=== PATIENT | female | born 1965 | race American Indian/Alaskan Native ===

== ENCOUNTER 2016-11-29 08:32 | Inpatient (IN) | payer BC ==
[2016-11-29 09:03] LABS: Basophils % (Auto) 0.7 % (0.0-1.8); Hematocrit 38.8 % (30.3-42.9); Hemoglobin 13.4 gm/dl (10.1-14.3); Mean Corpuscular HGB Conc 35 % (30-34); Mean Corpuscular Hemoglobin 27 pg (28-32); Mean Corpuscular Volume 79 fl (79-97); Platelet Count 204 K/mm3 (140-440); Red Blood Count 4.93 M/mm3 (3.65-5.03); White Blood Count 5.2 K/mm3 (4.5-11.0)
[2016-11-29 09:25] LABS: Anion Gap 19 mmol/L; BUN/Creatinine Ratio 25.55; Blood Urea Nitrogen 23 mg/dL (7-17); Calcium 9.2 mg/dL (8.4-10.2); Carbon Dioxide 27 mmol/L (22-30); Chloride 99.3 mmol/L (98-107); Glucose 115 mg/dL (65-100); Potassium 3.7 mmol/L (3.6-5.0); Sodium 142 mmol/L (137-145)
[2016-11-29 09:26] LABS: Amylase 126 units/L (27-131); Lipase 9 units/L (13-60)
[2016-11-29 10:27] LABS: Alanine Aminotransferase 26 units/L (7-56); Albumin 4.5 g/dL (3.9-5); Albumin/Globulin Ratio 1.1 %; Alkaline Phosphatase 120 units/L (35-129); Bilirubin,Direct < 0.2 mg/dL (0-0.2); Bilirubin,Total 0.4 mg/dL (0.1-1.2); Total Protein 8.7 g/dL (6.3-8.2)
--- NOTE | 2016-11-29 11:32 | Emergency Department Report ---
ED Chest Pain HPI - General Chief Complaint: Chest Pain Stated Complaint: CHEST PAIN Time Seen by Provider: 11/29/16 11:25 Source: patient Mode of arrival: Ambulatory Limitations: No Limitations - History of Present Illness Initial Comments: The patient reports intermittent chest pain in the substernal to right side of sternal area. She states she also feels some discomfort in the subscapular area. The pain does not truly radiate however. There is no radiation or pain involving the arms or the neck. She has recently traveled. However, her chest pain began before her trip. She reports no upper leg or calf pain. Her chest pain is not pleuritic. She has not been coughing or short of breath. She states that she vomited once while in the emergency department. She is not complaining of nausea at this time however. The pain is non-pleuritic. The patient states that she was seen by a selvage machine operator approximately one month ago. She had an echocardiogram. Apparently she was found to have some sort of valvular problem. I asked her was a floppy valve. She thinks that turned may have been used. She also states that she has had a murmur since childhood. She is really not aware of her specific echocardiogram result. She has never had a stress test. She's never been admitted to the hospital for chest pain. He has a history of hypertension. MD Complaint: chest pain -: Gradual, days(s) Onset: during rest Pain Location: substernal, other (right of sternum/back) Aspirin use within the Past 7 Days: (0) No - Related Data On Oral Contraceptives: No Allergies Allergy/AdvReac Type Severity Reaction Status Date / Time No Known Allergies Allergy Unverified 11/29/16 08:39 HERNANDO score - Hernando Score Age > 65: (0) No Aspirin use within the Past 7 Days: (0) No 3 or more CAD Risk Factors: (0) No 2 or more Angina events in past 24 hrs: (0) No Known CAD with more than 50% Stenosis: (0) No Elevated Cardiac Markers: (0) No ST Deviation Greater than 0.5mm: (0) No HERNANDO Score: 0 ED Review of Systems ROS: Stated complaint: CHEST PAIN Other details as noted in HPI Constitutional: denies: chills, fever Eyes: denies: eye pain, eye discharge, vision change ENT: denies: ear pain, throat pain Respiratory: shortness of breath. denies: cough, wheezing Cardiovascular: chest pain. denies: palpitations Endocrine: no symptoms reported Gastrointestinal: denies: abdominal pain, nausea, diarrhea Genitourinary: denies: urgency, dysuria, discharge Musculoskeletal: denies: back pain, joint swelling, arthralgia Skin: denies: rash, lesions Neurological: denies: headache, weakness, paresthesias Psychiatric: denies: anxiety, depression Hematological/Lymphatic: denies: easy bleeding, easy bruising ED Past Medical Hx - Past Medical History Previous Medical History?: Yes Hx Hypertension: Yes - Surgical History Past Surgical History?: Yes Additional Surgical History: pancreatic tumor removed; ablation of fibroid - Social History Smoking Status: Never Smoker Substance Use Type: None ED Physical Exam - General Limitations: No Limitations General appearance: alert, in no apparent distress - Head Head exam: Present: atraumatic, normocephalic - Eye Eye exam: Present: normal appearance. Absent: scleral icterus - ENT ENT exam: Present: normal exam, mucous membranes moist - Neck Neck exam: Present: normal inspection. Absent: meningismus - Respiratory Respiratory exam: Present: normal lung sounds bilaterally. Absent: respiratory distress - Cardiovascular Cardiovascular Exam: Present: regular rate, normal rhythm, systolic murmur (2 to 3/6 systolic murmur heard best in the right second intercostal space). Absent: diastolic murmur, rubs, gallop - GI/Abdominal GI/Abdominal exam: Present: soft, normal bowel sounds. Absent: distended, tenderness, guarding, rebound, rigid - Extremities Exam Extremities exam: Present: normal inspection - Back Exam Back exam: Present: normal inspection - Neurological Exam Neurological exam: Present: alert, oriented X3, CN II-XII intact. Absent: motor sensory deficit - Psychiatric Psychiatric exam: Present: normal affect, normal mood - Skin Skin exam: Present: warm, dry, intact, normal color. Absent: rash ED Course Vital Signs 11/29/16 08:39 Temperature 98.1 F Pulse Rate 71 Respiratory 20 Rate Blood Pressure 176/101 O2 Sat by Pulse 99 Oximetry - Reevaluation(s) Reevaluation #1: The patient was given analgesia, aspirin, Nitrol paste. He is in stable condition. I have added a d-dimer to her workup as yet pending. The hospitalist, Dr. Fermin, OB admitting the patient to the hospitalist service. 11/29/16 12:55 ED Medical Decision Making - Lab Data Result diagrams: 11/29/16 08:51 11/29/16 08:51 Laboratory Results - last 24 hr 11/29/16 11/29/16 11/29/16 08:51 08:51 08:51 WBC 5.2 RBC 4.93 Hgb 13.4 Hct 38.8 MCV 79 MCH 27 L MCHC 35 H RDW 15.0 Plt Count 204 Lymph % (Auto) 42.8 H Chester % (Auto) 8.7 H Eos % (Auto) 6.0 H Baso % (Auto) 0.7 Lymph # 2.2 Chester # 0.5 Eos # 0.3 Baso # 0.0 Seg Neutrophils % 41.8 Seg Neutrophils # 2.2 Sodium 142 Potassium 3.7 Chloride 99.3 Carbon Dioxide 27 Anion Gap 19 BUN 23 H Creatinine 0.9 Estimated GFR > 60 BUN/Creatinine Ratio 25.55 Glucose 115 H Calcium 9.2 Total Bilirubin Direct Bilirubin AST ALT Alkaline Phosphatase Troponin T < 0.010 Total Protein Albumin Albumin/Globulin Ratio Amylase 126 Lipase 9 L 11/29/16 09:24 WBC RBC Hgb Hct MCV MCH MCHC RDW Plt Count Lymph % (Auto) Chester % (Auto) Eos % (Auto) Baso % (Auto) Lymph # Chester # Eos # Baso # Seg Neutrophils % Seg Neutrophils # Sodium Potassium Chloride Carbon Dioxide Anion Gap BUN Creatinine Estimated GFR BUN/Creatinine Ratio Glucose Calcium Total Bilirubin 0.4 Direct Bilirubin < 0.2 AST 20 ALT 26 Alkaline Phosphatase 120 Troponin T Total Protein 8.7 H Albumin 4.5 Albumin/Globulin Ratio 1.1 Amylase Lipase Laboratory Results - last 24 hr 11/29/16 11/29/16 11/29/16 08:51 08:51 08:51 WBC 5.2 RBC 4.93 Hgb 13.4 Hct 38.8 MCV 79 MCH 27 L MCHC 35 H RDW 15.0 Plt Count 204 Lymph % (Auto) 42.8 H Chester % (Auto) 8.7 H Eos % (Auto) 6.0 H Baso % (Auto) 0.7 Lymph # 2.2 Chester # 0.5 Eos # 0.3 Baso # 0.0 Seg Neutrophils % 41.8 Seg Neutrophils # 2.2 PT INR APTT D-Dimer Sodium 142 Potassium 3.7 Chloride 99.3 Carbon Dioxide 27 Anion Gap 19 BUN 23 H Creatinine 0.9 Estimated GFR > 60 BUN/Creatinine Ratio 25.55 Glucose 115 H Calcium 9.2 Total Bilirubin Direct Bilirubin AST ALT Alkaline Phosphatase Troponin T < 0.010 NT-Pro-B Natriuret Pep Total Protein Albumin Albumin/Globulin Ratio Amylase 126 Lipase 9 L 11/29/16 11/29/16 11/29/16 09:24 11:49 11:53 WBC RBC Hgb Hct MCV MCH MCHC RDW Plt Count Lymph % (Auto) Chester % (Auto) Eos % (Auto) Baso % (Auto) Lymph # Chester # Eos # Baso # Seg Neutrophils % Seg Neutrophils # PT 13.4 INR 1.03 APTT 33.4 D-Dimer < 136 Sodium Potassium Chloride Carbon Dioxide Anion Gap BUN Creatinine Estimated GFR BUN/Creatinine Ratio Glucose Calcium Total Bilirubin 0.4 Direct Bilirubin < 0.2 AST 20 ALT 26 Alkaline Phosphatase 120 Troponin T < 0.010 NT-Pro-B Natriuret Pep Total Protein 8.7 H Albumin 4.5 Albumin/Globulin Ratio 1.1 Amylase Lipase 11/29/16 11:53 WBC RBC Hgb Hct MCV MCH MCHC RDW Plt Count Lymph % (Auto) Chester % (Auto) Eos % (Auto) Baso % (Auto) Lymph # Chester # Eos # Baso # Seg Neutrophils % Seg Neutrophils # PT INR APTT D-Dimer Sodium Potassium Chloride Carbon Dioxide Anion Gap BUN Creatinine Estimated GFR BUN/Creatinine Ratio Glucose Calcium Total Bilirubin Direct Bilirubin AST ALT Alkaline Phosphatase Troponin T NT-Pro-B Natriuret Pep 23.35 Total Protein Albumin Albumin/Globulin Ratio Amylase Lipase - EKG Data -: EKG Interpreted by Me EKG shows normal: sinus rhythm, axis, intervals, QRS complexes, ST-T waves Rate: normal - EKG Data Interpretation: normal EKG - Radiology Data interpreted by me: Chest x-ray shows no acute process Critical care attestation.: If time is entered above; I have spent that time in minutes in the direct care of this critically ill patient, excluding procedure time. ED Disposition Clinical Impression: Uncontrolled hypertension Chest pain Qualifiers: Chest pain type: unspecified Qualified Code(s): R07.9 - Chest pain, unspecified Disposition: OP ADMITTED IP TO THIS HOSP Is pt being admited?: Yes Does the pt Need Aspirin: Yes Condition: Stable Instructions: Chest Pain (ED), Hypertension (ED) Referrals: PRIMARY CARE, [Primary Care Provider] - 3-5 Days Time of Disposition: 13:27
[2016-11-29] MEDS ORDERED: MORPHINE IV ONE (11:48)
[2016-11-29] MEDS ORDERED: NITRO-BID 2% TP ONE (11:49)
[2016-11-29] MEDS ORDERED: ZOFRAN IV ONE (12:07)
[2016-11-29] MEDS ORDERED: MORPHINE IV PRN (12:24)
[2016-11-29] MEDS ORDERED: TYLENOL PO PRN (12:24)
[2016-11-29] MEDS ORDERED: ZOFRAN IV PRN (12:24)
[2016-11-29] MEDS ORDERED: APRESOLINE IV PRN (12:24)
--- NOTE | 2016-11-29 12:47 | XRay Report ---
Single view chest: History: Hypertension. Findings: Normal cardiomediastinal silhouette. Trachea is midline. No consolidation, pneumothorax or pleural effusion. Impression: No acute cardiopulmonary findings.
[2016-11-29 12:49] LABS: INR 1.03 (0.87-1.13); Partial Thromboplastin Time 33.4 Sec. (24.2-36.6)
[2016-11-29] MEDS ORDERED: ASPIRIN PO ONE (13:27)
[2016-11-29] MEDS: NORCO 5/325 PO PRN ×2 (14:30→21:56)
[2016-11-29] MEDS: PROTONIX PO SCH (14:30)
[2016-11-29] MEDS ORDERED: ASPIRIN ONE (14:41)
[2016-11-29] MEDS ORDERED: NORCO 5/325 ONE (14:41)
[2016-11-29] MEDS ORDERED: PROTONIX PO ONE (14:43)
--- NOTE | 2016-11-29 15:50 | History and Physical Report ---
History of Present Illness Date of examination: 11/29/16 Date of admission: 11/29/16 14:21 Chief complaint: Chest pains History of present illness: Patient is a 51-year-old woman with history of heart murmur, pancreatic tumor status post resection from [facility], here visiting since yesterday ([address]) who presents with substernal severe intermittent, pressure-like chest pain that radiates to right side underneath her right breast to axillary line that started before she drove down from [place], [place] yesterday. The chest pain is worse lying flat and lying on her right side. She had chest pain for over a months, and she saw a channeling machine operator back in [place] and was told she had a "floppy valve." She doesn't really know she had a stress tests. She denies any aggravating or relieving factors. She is tearful. She denies sob, fever, chills, cough. She did have nausea and small nonbloody emesis x 1, but no abd pains. Past History Past Medical History: other (as hpi) Past Surgical History: (x 1), Other (portion of pancrease removed for pre-cancerous lesion) Social history: full code. denies: smoking, alcohol abuse, prescription drug abuse, IV drug use Family history: CAD (mother had IL in her 50s) Medications and Allergies Allergies Allergy/AdvReac Type Severity Reaction Status Date / Time No Known Allergies Allergy Unverified 11/29/16 08:39 Active Meds: Active Medications Acetaminophen (Tylenol) 650 mg PO Q6H PRN PRN Reason: Non Cardiac Pain or Temp>100.5 Acetaminophen/Hydrocodone Bitart (Lost[place] 5/325) 1 each PO Q4H PRN PRN Reason: Pain, Moderate (4-6) Last Admin: 11/29/16 14:30 Dose: 1 each Enoxaparin Sodium (Lovenox) 40 mg SUB-Q QDAY@2200 LISSETTE Hydralazine HCl (Apresoline) 10 mg IV Q4HR PRN PRN Reason: Blood Pressure Morphine Sulfate (Morphine) 2 mg IV Q4H PRN PRN Reason: Pain , Severe (7-10) Ondansetron HCl (Zofran) 4 mg IV Q4H PRN PRN Reason: Nausea And Vomiting Pantoprazole Sodium (Protonix) 40 mg PO QDAY LISSETTE Last Admin: 11/29/16 14:30 Dose: 40 mg Review of Systems All systems: negative (as hpi, all other reviewed and negative) Exam - Constitutional Vitals: Temp Pulse Resp BP Pulse Ox 98.1 F 74 18 157/99 98 11/29/16 08:39 11/29/16 14:11 11/29/16 14:30 11/29/16 14:11 11/29/16 14:11 General appearance: Present: no acute distress - EENT Eyes: Present: PERRL, EOM intact. Absent: scleral icterus, conjunctival injection, exopthalmos ENT: hearing intact, clear oral mucosa, dentition normal - Neck Neck: Present: supple, normal ROM. Absent: rigidity, enlarged thyroid - Respiratory Respiratory effort: normal Respiratory: bilateral: CTA - Cardiovascular Rhythm: regular Heart Sounds: Present: S1 & S2, systolic murmur (3/6 RUSB) - Extremities Extremities: no ischemia, pulses intact, pulses symmetrical, No edema Peripheral Pulses: within normal limits - Abdominal General gastrointestinal: Present: soft, non-tender, non-distended, normal bowel sounds. Absent: hepatomegaly - Integumentary Integumentary: Present: clear, warm, dry. Absent: erythema - Musculoskeletal Musculoskeletal: strength equal bilaterally - Psychiatric Psychiatric: intact judgment & insight, memory intact, cooperative, other ( anxiety) - Neurologic Neurologic: CNII-XII intact, no focal deficits, moves all extremities - Allied Health Allied health notes reviewed: nursing Results - Labs CBC & Chem 7: 11/29/16 08:51 11/29/16 08:51 - Imaging and Cardiology EKG: image reviewed Assessment and Plan Patient is a 51-year-old woman with history of heart murmur, pancreatic tumor status post resection from [place], [place] area, here visiting since yesterday ([address]) who presents with substernal severe intermittent, pressure-like chest pain that radiates to right side underneath her right breast to axillary line that started before she drove down from [place], [place] yesterday. The chest pain is worse lying flat and lying on her right side. She had chest pain for over a months, and she saw a channeling machine operator back in [place] and was told she had a "floppy valve." She doesn't really know she had a stress tests. She denies any aggravating or relieving factors. She is tearful. She denies sob, fever, chills, cough. She did have nausea and small nonbloody emesis x 1, but no abd pains. 1. CP most likely not cardiac, d-dimer is normal also, suspect Anxiety related: get stress test in am 2. Uncontrolled hypertenison 3. N/v without abd pains: get kub, h/o pancreatic tumor s/p surgery, needs to follow-up with her surgeon
--- NOTE | 2016-11-29 17:13 | XRay Report ---
FINAL REPORT EXAM: XR ABDOMEN 2V HISTORY: n/v COMPARISON: None available. FINDINGS: Two AP views of the abdomen obtained. No gross free air. Mild gas-filled prominence of bowel loops concerning for minimal ileus. None are pathologically dilated. No gross pathological calcifications. There are few pelvic phleboliths. IMPRESSION: Probable mild ileus.
[2016-11-29] MEDS ORDERED: LOVENOX SUB-Q SCH (22:00)
[2016-11-29 22:24] LABS: Creatine Kinase MB 1.6 ng/mL (0.0-4.0)
[2016-11-29 22:26] LABS: Creatine Kinase 86 units/L (30-135)
--- NOTE | 2016-11-30 00:43 | Admit Criteria Form ---
Admission Criteria Documentation: CHEST PAIN Clinical Indications for Admission to Inpatient Care (Place 'X' for any and all applicable criteria): Admission is indicated for chest pain and ANY ONE of the following(1)(2)(3)(4)(5 ): [ ]I. Angina with acute coronary syndrome (Also use Myocardial Infarction or Angina guideline) [ ]II. Hemodynamic instability [ ]III. Angina needing acute intervention as indicated by ALL of the following( 11)(12): [ ]a) Unstable angina is present as indicated by angina that is ANY ONE of the following: [ ]i) New onset [ ]ii) Nocturnal [ ]iii) Prolonged at rest [ ]iv) Progressive [ ]b) Angina warrants acute intervention as indicated by ANY ONE of the following: [ ]i) Recurrent angina (e.g, not responding as previously to treatment) [ ]ii) Angina at rest or with low-level activities despite initial medical therapy [ ]iii) New or presumably new ST-segment depression on ECG [ ]iv) Signs or symptoms of heart failure (eg, dyspnea, pulmonary edema) [ ]v) New or worsening mitral regurgitation [ ]vi) Hemodynamic instability [ ]vii) Dangerous arrhythmia (eg, sustained ventricular tachycardia) [ ]viii) History of percutaneous coronary intervention within 6 months [ ]ix) History of coronary artery bypass graft surgery [ ]x) HERNANDO risk score of 2 or greater[A] [ ]xi) History of Diabetes(14) [ ]xii) High-risk cardiac ischemia findings on noninvasive testing (e.g, echocardiogram, treadmill testing, nuclear scan) [ ]xiii) Chronic renal insufficiency (ie, estimated GFR less than 60 mL/min/1.732m) [ ]xiv) Left ventricular ejection fraction less than 40% [ ]IV. Evidence of LA (eg, cardiac biomarkers positive, ST-segment elevation on ECG) also use Myocardial Infarction Criteria Form. [ ]V. Pulmonary edema [ ]. Respiratory distress [ ]VII. Chest pain indicative of serious diagnosis other than coronary artery disease (eg, aortic dissection) [ ]VIII. Contraindications and/or Inappropriate clinical situations for Observational Care in patients with Chest Pain, when ANY ONE of the following is required: [ ]a) Patient with risk factor for pulmonary embolism, acute coronary syndrome and myocardial infarction (18) [ ]b) Patient with Pulmonary embolism require an average LOS of 4.3 days, therefore emergency department observation management is inappropriate 18,23 [ ]c) Painful condition/s in the elderly, have the highest rate of recidivism after emergency department observation management (10.8%) 20,21,22 [ ]d) Elevated cardiac biomarker requires intensive and exhaustive care (19) [X ]IX. General contraindications and/or Inappropriate clinical situations for Observational Care in patients with Chest Pain, when ANY ONE of the following is required: [ X]a) Prediction of prolongation of LOS based on ANY ONE of the following may be considered as a contraindication for observational care 2, 3, 4, 5, 6, 7, 8, 9, 10, 11 [ ]i) Age > 65 yrs. [ ]ii) Patient arriving by ambulance [ ]iii) Patient with high acuity [X ]iv) Patient requiring vital sign monitoring [X ]v) Patient on IV medication [ ]b) Systolic blood pressures 180mmHg 3,12 [ ]c) Patient with altered mental status including delirium and other alteration of consciousness, (3) [ ]d) Patient whose discharge disposition will be to a jail home or rehabilitation home should not be managed in Emergency Department Observation Unit. CMS rule requires 3 days hospital stay before such placement. 3,13 [ ]e) Patient with failure to thrive due to broad array of etiologies 3,16,17 [ ]f) Inability to ambulate 3,14 Extended stay beyond goal length of stay may be needed for (1)(28): [ ]a) Specific condition diagnosed after evaluation (eg, pulmonary embolism, aortic dissection) [ ]b) Unstable angina [ ]c) Continued suspicion of acute coronary syndrome with inability to complete needed cardiac evaluation (eg, patient clinically unable to undergo stress testing) [ ]d) Myocardial infarction (Contents from ANGINA and CHEST PAIN clinical indications for admission to inpatient care have been integrated in this form) The original [employer] content created by [employer] has been revised. The portions of the content which have been revised are identified through the use of italic text or in bold, and [facility] has neither reviewed nor approved the modified material. All other unmodified content is copyright [employer]. Please see references footnoted in the original [facility] edition 2016 Admission Criteria Met: Yes
[2016-11-30] MEDS ORDERED: TUMS PO PRN (01:21)
[2016-11-30 02:02] LABS: Creatine Kinase MB 1.7 ng/mL (0.0-4.0)
[2016-11-30 02:03] LABS: Creatine Kinase 88 units/L (30-135)
[2016-11-30 05:40] LABS: Hematocrit 35.2 % (30.3-42.9); Hemoglobin 12.3 gm/dl (10.1-14.3); Mean Corpuscular HGB Conc 35 % (30-34); Mean Corpuscular Hemoglobin 28 pg (28-32); Mean Corpuscular Volume 79 fl (79-97); Platelet Count 209 K/mm3 (140-440); Red Blood Count 4.46 M/mm3 (3.65-5.03); Red Cell Distribution Width 14.9 % (13.2-15.2); White Blood Count 5.8 K/mm3 (4.5-11.0)
[2016-11-30 05:46] LABS: BUN/Creatinine Ratio 18.75; Blood Urea Nitrogen 15 mg/dL (7-17); Calcium 9.2 mg/dL (8.4-10.2); Carbon Dioxide 27 mmol/L (22-30); Chloride 96.6 mmol/L (98-107); Glucose 109 mg/dL (65-100); Potassium 3.3 mmol/L (3.6-5.0); Sodium 138 mmol/L (137-145)
[2016-11-30 05:50] LABS: Anion Gap 18 mmol/L
[2016-11-30 06:03] LABS: Cholesterol 220 mg/dL (50-199); HDL Cholesterol 57 mg/dL (40-59); LDL Cholesterol,Direct 125 mg/dL (50-130); Triglycerides 190 mg/dL (2-149)
[2016-11-30] MEDS ORDERED: LEXISCAN IV ONE ×2 (08:11→08:25)
--- NOTE | 2016-11-30 09:12 | Event Note ---
Date: 11/30/16 Lexiscan stress test completed No complication Nuclear images negative for stress induced ischemia. Risk of significant cardiac event within the next year is lass than 1% EF 76%
[2016-11-30 10:18] VITALS: BP 142/91
[2016-11-30] MEDS: PROTONIX PO SCH (11:22)
--- NOTE | 2016-11-30 12:00 | Discharge Summary ---
Providers - Providers Date of Admission: 11/29/16 14:21 Date of discharge: 11/30/16 Attending physician: JORDYN CRUZ Primary care physician: XANDER LAND MD Hospitalization Condition: Good Disposition: DISCHARGED TO HOME OR SELFCARE - Discharge Diagnoses (1) GERD (gastroesophageal reflux disease) Status: Acute Qualifiers: Esophagitis presence: E (2) Chest pain Status: Acute Qualifiers: Chest pain type: unspecified Qualified Code(s): R07.9 - Chest pain, unspecified (3) Uncontrolled hypertension Status: Acute Exam - Constitutional Vitals: Temp Pulse Resp BP Pulse Ox 97.6 F 93 H 20 142/91 95 11/30/16 05:16 11/30/16 08:10 11/30/16 05:16 11/30/16 08:10 11/30/16 10:00 Plan Activity: no restrictions Diet: low fat, low cholesterol, low salt Additional Instructions: 1.Follow up with [facility] in 3-5 days. Follow up with: PRIMARY CARE, [Primary Care Provider] - 3-5 Days Prescriptions: Famotidine [Pepcid] 20 mg PO BID #30 tablet
--- NOTE | 2016-12-01 13:42 | Treadmill Report ---
THALLIUM STRESS TEST LEFT VENTRICLE: Left ventricular chamber size is within normal. Perfusion study demonstrates homogeneous uptake of the tracer in all segments. No significant defects identified. Gated analysis demonstrates normal left ventricular systolic function, ejection fraction 76%. CONCLUSION: Normal myocardial perfusion study. JOB# [id number] CA/NTS
--- NOTE | 2016-12-03 08:41 | Query- Chest Pain ---
Deakeya Deal Date:_12/03/16 Allocation Analyst/CDS:Yfn/Ricardo Graham Phone#:_[phone] Exercise your independent professional judgment when responding to query. Questions asked do not imply a particular answer is desired or expected. We greatly appreciate your clarification on this issue. Clinical Documentation States: 51 Y/O Female admitted on 11/29/16 with history of heart murmur, pancreatic tumor s/p resection from [place], [place] visiting since yesterday([address]) presenting with substernal severe intermittent pressure like pain that radiates to the right side. Discharge summary states: 1) GERD 2) Acute Chest Pain 3) uncontrolled hypertension Please document the etiology of Chest Pain: [ ] Myocardial Infarction [ ] Pneumonia [ ] Mediastinitis [ ] Costochondritis [ ] Pulmonary Embolism [ ] Coronary Artery Disease [x ] GERD [ ] Other: [ ] Comment/Explanation: Present on Admission: [ x] Yes (Y) [ ] Clinically undeterminable (W) [ ] No(N) Please document response in your Progress Notes and/or Discharge Summary and indicate if the condition was present on admission. TEO
== END 2016-11-30 13:00 | disposition home or self-care (01) | DRG 392 ==
LOC: ED 08:32 → 4A 14:21
PROVIDERS: ADMIT Internal Medicine; ATTEND Internal Medicine
DX: K21.0 Gastro-esophageal reflux disease with esophagitis (principal); I10 Essential (primary) hypertension; Z82.49 Family history of ischemic heart disease and other diseases of the circulatory system
CPT/HCPCS: 36415; 71010; 74020; 78452; 80048; 80061; 80074; 82150; 82550; 82553; 83690; 83880; 84443; 84484; 85025; 85027; 85379; 85610; 85730; 93005; 93010; 93017; 96374; 96375; A9502; J1650; J2270; J2405; J2785